=== PATIENT | female | born 1965 | race Caucasian/White ===

== ENCOUNTER → 2018-05-06 | Outpatient (CLI) | payer BC ==
[~2018-05-06] MED LIST: LEVO300T2 PO; LIOT5TAB3 PO; OMEP-110 PO
[2018-05-06 10:45] LABS: BASOPHILS # (AUTO) 0.05 x10^3/uL (0-0.1); BASOPHILS % (AUTO) 1 % (0-1); EOSINOPHILS # (AUTO) 0.12 x10^3/uL (0-0.4); EOSINOPHILS % (AUTO) 2 % (1-7); LYMPHOCYTES # (AUTO) 1.64 x10^3/uL (1-3.4); LYMPHOCYTES % (AUTO) 23 % (22-44); MD NO; MEAN CORPUSCULAR HGB CONC 33.5 g/dL (32.4-35.8); MEAN CORPUSCULAR VOLUME 86.4 fL (80-100); MEAN PLATELET VOLUME 9.1 fL (7.4-10.4); MONOCYTES # (AUTO) 0.58 x10^3/uL (0.2-0.8); MONOCYTES % (AUTO) 8 % (2-9); NEUTROPHILS % (AUTO) 67 % (42-75); PLATELET COUNT 293 x10^3/uL (130-400); RED BLOOD COUNT 4.69 x10^6/uL (3.82-5.3); RED CELL DISTRIBUTION WIDTH 13.5 % (9.6-15.2)
[2018-05-06 10:53] LABS: ALANINE AMINOTRANSFERASE 19 U/L (12-78); ALBUMIN 3.6 g/dL (3.4-5.0); ANION GAP 7 mmol/L (5-15); CALCIUM 8.6 mg/dL (8.5-10.1); CHLORIDE 108 mmol/L (98-107); CREATININE 0.95 mg/dL (0.55-1.02)
[2018-05-06 10:58] LABS: ALKALINE PHOSPHATASE 76 U/L (45-117); BILIRUBIN,TOTAL 0.6 mg/dL (0.2-1.0); TOTAL PROTEIN 8.1 g/dL (6.4-8.2)
[2018-05-06 11:15] LABS: MICROSCOPIC INDICATED
[2018-05-06 11:16] LABS: CULTURE INDICATED? YES
== END | disposition home or self-care (01) ==
LOC: STAR 09:47
PROVIDERS: ATTEND Obstetrics & Gynecology Gynecology
DX: Z01.818 Encounter for other preprocedural examination (principal); N92.0 Excessive and frequent menstruation with regular cycle; D39.11 Neoplasm of uncertain behavior of right ovary
CPT/HCPCS: 36415; 80053; 81001; 84703; 85025; 87086

== ENCOUNTER 2018-05-13 05:37 | Day surgery (SDC) | payer BC ==
[~2018-05-13] VITALS: Ht 162.6 cm; Wt 90.0 kg
[2018-05-13] MEDS ORDERED: LACTATED RINGERS 1,000 ML IV SCH (06:12)
[2018-05-13] MEDS ORDERED: LIDOCAINE 1%-EPI 1:100K, 30ML ONE (06:57)
[2018-05-13] MEDS ORDERED: INDIGO CARMINE 0.8%, 5ML ONE (06:57)
[2018-05-13] MEDS ORDERED: FENTANYL PF 100 MCG/2ML ONE ×3 (07:14→09:54)
[2018-05-13] MEDS ORDERED: DEXAMETHASONE 4 MG/ML, 1ML ONE ×2 (07:14)
[2018-05-13] MEDS ORDERED: MIDAZOLAM 1 MG/ML, 2ML ONE (07:14)
[2018-05-13] MEDS ORDERED: CEFAZOLIN 1,000 MG ONE ×2 (07:14→07:15)
[2018-05-13] MEDS ORDERED: SUCCINYLCHOLINE 20 MG/ML, 10ML ONE (07:14)
[2018-05-13] MEDS ORDERED: ROCURONIUM 10MG/ML,5ML ONE (07:15)
[2018-05-13] MEDS ORDERED: LIDOCAINE-MPF 2% ,5ML ONE (07:15)
[2018-05-13] MEDS ORDERED: METOPROLOL 1 MG/ML, 5ML IV PRN (07:30)
[2018-05-13] MEDS ORDERED: MORPHINE SULFATE 4 MG/ML, 1ML IVPush PRN (07:30)
[2018-05-13] MEDS ORDERED: MIDAZOLAM 1 MG/ML, 2ML IV PRN (07:30)
[2018-05-13] MEDS ORDERED: LABETALOL 5MG/ML, 20ML IV PRN (07:30)
[2018-05-13] MEDS ORDERED: DIAZEPAM 5 MG/ML, 2ML IVPush PRN (07:30)
[2018-05-13] MEDS ORDERED: MEPERIDINE/PF 25MG/0.5ML IVPush PRN (07:30)
[2018-05-13] MEDS ORDERED: ACETAMINOPHEN 500 MG TABLET PO ONE (07:30)
[2018-05-13] MEDS ORDERED: hydrALAzine 20 MG/ML, 1ML IV PRN (07:30)
[2018-05-13] MEDS ORDERED: PROCHLORPERAZINE 5 MG/ML, 2ML IV PRN (07:30)
[2018-05-13] MEDS ORDERED: ONDANSETRON ODT 8 MG PO ONE (07:30)
[2018-05-13] MEDS ORDERED: OXYcodone 5 MG/5 ML ORAL.SOL UDC PO PRN (07:30)
[2018-05-13] MEDS ORDERED: EPHEDRINE 50 MG/ML, 1ML IVPush PRN (07:30)
[2018-05-13] MEDS ORDERED: ALBUTEROL SULFATE 2.5 MG/3 ML NPPB PRN (07:30)
[2018-05-13] MEDS ORDERED: HYDROmorphone 1 MG/ML, 1ML IV PRN (07:30)
[2018-05-13] MEDS ORDERED: LORazepam 2 MG/ML, 1ML IVPush PRN (07:30)
[2018-05-13 07:34] LABS: HCG UR SG 1.023 (1.003-1.030)
[2018-05-13] MEDS ORDERED: MEPERIDINE/PF 50 MG/ML ONE (09:37)
[2018-05-13] MEDS ORDERED: OXYcodone 5 MG/5 ML ORAL.SOL UDC ONE (09:54)
[2018-05-13] MEDS: FENTANYL PF 100 MCG/2ML IV PRN ×2 (09:56→10:10)
[2018-05-13] MEDS ORDERED: PROCHLORPERAZINE 5 MG/ML, 2ML ONE (11:42)
[2018-05-13] MEDS ORDERED: SCOPOLAMINE PATCH, 1.5MG PATCH.TD72 TD ONE ×2 (14:26→14:30)
== END 2018-05-13 17:00 | disposition home or self-care (01) ==
LOC: OUT 05:37
PROVIDERS: ATTEND Obstetrics & Gynecology Gynecology
DX: N80.0 Endometriosis of uterus (principal); N81.5 Vaginal enterocele; Z88.5 Allergy status to narcotic agent; D27.0 Benign neoplasm of right ovary; N94.89 Other specified conditions associated with female genital organs and menstrual cycle; N83.01 Follicular cyst of right ovary; Z98.890 Other specified postprocedural states; Z79.899 Other long term (current) drug therapy; E03.9 Hypothyroidism, unspecified; K21.9 Gastro-esophageal reflux disease without esophagitis
CPT/HCPCS: 36415; 57268; 58552; 81025; 85014; 88112; 88307; J0330; J0690; J0780; J1100; J2175; J2250; J3010; J3490; J7120; Q0162